=== PATIENT | female | born 1980 | race Caucasian/White ===

== ENCOUNTER 2017-02-17 20:30 | Outpatient (CLI) | payer BC | END 2017-02-17 20:31 | disposition home or self-care (01) | LOC: SLEEPLAB 20:30 | PROVIDERS: ATTEND Internal Medicine Critical Care Medicine | DX: G47.33 Obstructive sleep apnea (adult) (pediatric) (principal); R06.81 Apnea, not elsewhere classified; R53.83 Other fatigue; F32.9 Major depressive disorder, single episode, unspecified; R06.83 Snoring | CPT/HCPCS: 95810 ==

== ENCOUNTER 2018-06-27 08:17 | Emergency (ER) | payer BC ==
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
[2018-06-27 08:46] LABS: #Basophils 0.1 thou/uL (0.0-0.2); #Eosinphils 0.2 thou/uL (0.0-0.7); #Lymphocytes 1.9 thou/uL (1.20-3.40); #Monocytes 0.5 thou/uL (0.11-0.59); #Neutrophils 6.2 thou/uL (1.40-6.50); %Eosinophils 2.7 % (0.0-10.0); %Lymphocytes 21.1 % (21.0-51.0); %Monocytes 5.9 % (0.0-10.0); %Neutrophils 69.2 % (42.0-75.0); Hemoglobin 14.6 g/dL (12.0-16.0); Mean Corpuscular HGB CONC 33.4 g/dL (32.0-36.0); Mean Corpuscular Hemoglobin 28.4 pg (27.0-31.0); Platelet Count 292 thou/uL (130-400); RBC Distribution Width 12.3 % (11.5-14.5); Red Blood Cell (RBC) Count 5.13 mill/uL (4.20-5.40); White Blood Cell (WBC) Count 8.9 thou/uL (4.8-10.8)
[2018-06-27] MEDS ORDERED: Adacel (T-DAP) 0.5 ML SYRINGE ONE (08:48)
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
[2018-06-27 09:09] LABS: ALT (SGPT) 25 U/L (8-55); AST (SGOT) 18 U/L (5-34); Alkaline Phosphatase 113 U/L (40-150); Anion Gap 14 mmol/L (10-20); BUN (Urea Nitrogen) 11 mg/dL (7.0-18.7); Bilirubin, Total 0.6 mg/dL (0.2-1.2); Calc. Creatinine Clearance 0 mL/min (70-130); Calcium 9.3 mg/dL (7.8-10.44); Carbon Dioxide 23 mmol/L (22-29); Chloride 104 mmol/L (98-107); Estimated GFR-MDRD 85; Globulin 3.3 g/dL (2.4-3.5); Glucose 105 mg/dL (70-105); Lipase 20 U/L (8-78); Potassium 3.8 mmol/L (3.5-5.1); Protein, Total 7.3 g/dL (6.0-8.3); Sodium 137 mmol/L (136-145)
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
[2018-06-27] MEDS ORDERED: Ketorolac Tromethamine 30 MG/ML VIAL ONE ×2 (09:36→09:43)
== END 2018-06-27 10:00 | disposition home or self-care (01) ==
LOC: ERS 08:17
DX: S00.81XA Abrasion of other part of head, initial encounter (principal); S50.812A Abrasion of left forearm, initial encounter; F32.9 Major depressive disorder, single episode, unspecified; Z79.899 Other long term (current) drug therapy; V43.52XA Car driver injured in collision with other type car in traffic accident, initial encounter; W22.10XA Striking against or struck by unspecified automobile airbag, initial encounter
CPT/HCPCS: 70450; 71045; 72125; 72170; 80053; 83690; 85025; 90471; 90715; G0390; J1885

== ENCOUNTER 2020-04-20 18:00 | Outpatient (CLI) | payer BC | END 2020-04-20 18:01 | disposition home or self-care (01) | LOC: SLEEPLAB 18:00 | PROVIDERS: ATTEND Internal Medicine Critical Care Medicine | DX: G47.33 Obstructive sleep apnea (adult) (pediatric) (principal) | CPT/HCPCS: 95806 ==

== ENCOUNTER 2024-02-18 08:17 | Outpatient (CLI) | payer BC | END 2024-02-18 08:18 | disposition home or self-care (01) | LOC: MRI 08:17 | PROVIDERS: ATTEND Emergency Medicine Sports Medicine | DX: M25.561 Pain in right knee (principal); S83.241A Other tear of medial meniscus, current injury, right knee, initial encounter; M66.0 Rupture of popliteal cyst; R93.7 Abnormal findings on diagnostic imaging of other parts of musculoskeletal system ==